=== PATIENT | female | born 1975 | race Caucasian/White ===

== ENCOUNTER 2017-01-30 17:37 | Emergency (ER) | payer OTHER ==
[2017-01-30 17:48] VITALS: BP 107/65; PULSE 88; TEMP 98; BMI 19.8
[2017-01-30] MEDS ORDERED: IBUPROFEN 600 MG TABLET (FP) PO ONE ×2 (18:20)
--- NOTE | 2017-01-30 18:21 | PDOC ---
History of Present Illness - General Chief Complaint: Injury Stated Complaint: INJURY Time Seen by Provider: 01/30/17 18:11 History Source: Patient Exam Limitations: No Limitations - History of Present Illness Initial Comments: 01/30/17 19:17 My chief Complaint: Punched wall with right hand has swelling/pain and abrasion to area History of present illness: 41-year-old female with h/o depression here today after she reports that she punched a wall with her right hand with swelling to the right dorsal hand over her fifth metacarpal joint with abrasion. Patient denies any numbness of her right hand. Patient has slightly decreased range of motion of her right fifth finger at the proximal aspect. Patient denies any other injuries. Patient reports that she has been stressed due to multiple reasons would not elaborate on them and punched a wall. In triage was asked to leave a area in order for triage nurse to asked other questions regarding any possible domestic violence and to offer numbers for safe haven's. Patient did not accept them and is adamant that she was not a victim of domestic violence. 01/30/17 19:25 Occurred: reports: just prior to arrival Severity: reports: moderate Pain Location: reports: upper extremity (rt. hand over 5 th mcp jt ) Method of Injury: Yes: direct blow (to a wall ) Modifying Factors: improves with: cold therapy Loss of Consciousness: no loss of consciousness Associated Symptoms (Fall): other (abrasion rt. hand over 5th mcp jt superfical ) Past History - Past Medical History Allergies/Adverse Reactions: Allergies Allergy/AdvReac Type Severity Reaction Status Date / Time ciprofloxacin [From Cipro] AdvReac Verified 01/30/17 17:38 ciprofloxacin HCl AdvReac Verified 01/30/17 17:38 [From Cipro] nitrofurantoin AdvReac Verified 01/30/17 17:38 [From Macrobid] nitrofurantoin AdvReac Verified 01/30/17 17:38 macrocrystalline [From Macrobid] sulfamethoxazole AdvReac Verified 01/30/17 17:38 [From Bactrim] trimethoprim [From Bactrim] AdvReac Verified 01/30/17 17:38 Home Medications: Ambulatory Orders NK [No Known Home Medication] 01/30/17 Psychiatric Problems: Yes (depression) - Psycho/Social/Smoking Cessation Hx Anxiety: No Suicidal Ideation: No Smoking History: Never smoked Have you smoked in the past 12 months: No Information on smoking cessation initiated: No Hx Alcohol Use: No Drug/Substance Use Hx: No Substance Use Type: None Review of Systems - Review of Systems Constitutional: No: Symptoms Reported HEENTM: No: Symptoms Reported Respiratory: No: Symptoms reported Cardiac (ROS): No: Symptoms Reported Musculoskeletal: Yes: Joint Pain (rt 5th proximal mcp jt ), Joint Swelling (rt. 5th mcp jt ) Integumentary: Yes: Other (superfical abrasion over rt. mcp jt ) Neurological: No: Symptoms reported *Physical Exam - Vital Signs Last Vital Signs Temp Pulse Resp BP Pulse Ox 98.0 F 88 18 107/65 100 01/30/17 17:42 01/30/17 17:42 01/30/17 17:42 01/30/17 17:42 01/30/17 17:42 - Physical Exam General Appearance: Yes: Appropriately Dressed Comments:: 01/30/17 19:28 radial pulse 4 + RT 01/30/17 22:38 Extremity: positive: Normal Capillary Refill, Tender (RT. 5TH MCP TJ. ), Swelling (RT. 5TH MCP JT ), Other (right hand full range of motion rt. thumb, second, third, fourth at PIP, DIP, MCP jts ). negative: Normal Inspection, Normal Range of Motion (DECREASED ROM RT. 5HT PROXIMAL PHALANX) Integumentary: positive: Other (ABRASION RT. HAND OVER 5TH MCP JT SUPERFICAL PEA SIZE ) Neurologic: positive: Alert, Normal Response, Respond to painful stimul (RIGHT HAND DORSAL AND ALL DIGITS RT. HAND ), Responsive. negative: Numbness, Sensory Deficit Procedures - Consent Consent obtained: From Patient - Splinting Splint Location: Right: Hand (boxer ) Pre-Proc Neuro Vasc Exam: normal Hand-Made Type: orthoglass Splint Type: Yes: Short Arm (rt. boxer orthoglass splint) Post-Proc Neuro Vasc Exam: normal Andrew Bandage: 3" Complications: No - Additional Procedures Progress: 01/30/17 19:31 cleansed abrasion on right hand over fifth metacarpal joint with Betadine and normal saline 0.9% dried area and applied a tiny amount of bacitracin ointment with Band-Aid ED Treatment Course - RADIOLOGY Radiology Studies Ordered: Category Date Time Status HAND- RIGHT [RAD] Stat Radiology 01/30/17 18:19 Ordered Medical Decision Making - Medical Decision Making 01/30/17 19:21 41-year-old female with h/o depresssion here today after she reports that she punched a wall with her right hand with swelling to the right dorsal hand over her fifth metacarpal joint with abrasion. Patient denies any numbness of her right hand. Patient has slightly decreased range of motion of her right fifth finger at the proximal aspect. Patient denies any other injuries. Patient reports that she has been stressed due to multiple reasons would not elaborate on them and punched a wall. In triage was asked to leave a area in order for triage nurse to asked other questions regarding any possible domestic violence and to offer numbers for safe haven's. Patient did not accept them and is adamant that she was not a victim of domestic violence. Denies any chance of reports that her Right hand swollen over 5th mcp jt with superifical abrasion PLAN: xray Right hand fracture of rt. 5th proximal mcp jt displaced volarly ibuprofen 600 mg po now boxer orthoglass splint applied with andrew wrap Follow up with ortho on 02/01/17 01/30/17 19:26 *DC/Admit/Observation/Transfer Diagnosis at time of Disposition: Fracture of metacarpal - Discharge Dispostion Disposition: HOME Condition at time of disposition: Stable - Referrals Referrals: Pablo Ramirez MD [Primary Care Provider] - Marlo Thomason MD [Staff Physician] - - Patient Instructions Additional Instructions: Apply ice to right hand over splint as much as possible today and tomorrow to help decrease swelling Call orthopedist office on 02/01/2017 told him that she was seen here today and that she would need follow-up Return to emergency room if any numbness of fingers or hand Take ibuprofen as needed as directed recommended by caterpillar mechanic for pain Patient voiced understanding of discharge instructions and all questions were answered
== END 2017-01-30 19:43 | disposition home or self-care (01) ==
LOC: JERFT 17:37
PROC: 2W3CX1Z Immobilization of Right Lower Arm using Splint (ICD-10-PCS; principal; 2017-01-30)
DX: S62.396A Other fracture of fifth metacarpal bone, right hand, initial encounter for closed fracture (principal); W22.8XXA Striking against or struck by other objects, initial encounter; Y93.89 Activity, other specified; Y92.098 Other place in other non-institutional residence as the place of occurrence of the external cause; Y99.8 Other external cause status
CPT/HCPCS: 73130-TC-RT; 99281-25